=== PATIENT | male | born 1995 | race Caucasian/White ===

== ENCOUNTER 2023-02-08 01:29 | Emergency (ER) | payer MEDICAID, SELFPAY ==
[2023-02-08 01:38] VITALS: BP 146/93; PULSE 115; RESP 16; TEMP 36.6; O2SAT 96; BMI 23.7
--- NOTE | 2023-02-08 01:41 | USR_ITS ---
PROCEDURE INFORMATION: Exam: US Scrotum and US Duplex Artery and Vein, Scrotum, Complete Exam date and time: 02/08/2023 2:07 AM Age: 27 years old Clinical indication: Scrotum pain; Patient HX: RT scrotal pain after being hit in groin by dog. ; Additional info: Right testicular swelling, injury TECHNIQUE: Imaging protocol: Real-time ultrasound of the scrotum. Real-time duplex ultrasound scan of the arterial and venous flow of the scrotum with B-mode, color Doppler flow and spectral waveform analysis. Complete exam. Duplex exam was performed to evaluate for torsion and other vascular conditions. COMPARISON: No relevant prior studies available. FINDINGS: Right testicle: Normal size and echotexture. No mass. No torsion. Normal Duplex waveforms and color doppler. Mild microlithiasis. Left testicle: Normal size and echotexture. No mass. No torsion. Normal Duplex waveforms and color doppler. Mild microlithiasis. Epididymides: Normal. Scrotum: Unremarkable scrotal wall. Bilateral varicoceles larger on left than right. US/US scrotum [id number] IMPRESSION: 1. Negative for testicular injury. 2. Incidental varicoceles.
--- NOTE | 2023-02-08 01:42 | W.ED.MALEGU ---
HPI - Male Genitourinary General: Chief complaint: Urogenital-Male Stated complaint: male genital injury Time Seen by Provider: 02/08/23 01:35 History of Present Illness: 27-year-old male patient comes in today with complaints of pain and swelling to the right testicle. Patient reports 2 days ago he was struck in the groin when a dog jumped up on him. Since then patient has had increased pain and discomfort to the right testicle and has noticed some swelling. Patient appears nontoxic. Patient appears in mild pain at rest. Patient reports going to the emergency room last night in [place] and was recommended to have an ultrasound but they could not do 1 because they did not have the availability. Patient elected to follow-up at that time. Patient comes in tonight due to persistent pain and discomfort. Associated symptoms: Deny nausea or vomiting Review of Systems General: Reports: 10 or more systems reviewed and unremarkable except in HPI and below Const: Denies: fever(s) Card: Denies: chest pain Resp: Denies: dyspnea GI: Denies: nausea, vomiting, diarrhea or constipation : Reports: testicular pain and scrotal swelling; Denies: difficulty urinating Musc: Denies: back pain Skin/Breast: Denies: rash Physical Exam Const: COMMON NORMALS: alert HENMT: COMMON NORMALS: normocephalic HEAD & SCALP: normocephalic Neck/C-Spine: COMMON NORMALS: full ROM Lymph: LYMPHATIC: no lymphadenopathy noted Resp: COMMON NORMALS: normal respiratory effort Cardio: COMMON NORMALS: regular rate and regular rhythm RATE: regular rate RHYTHM: regular rhythm GI: COMMON NORMALS: non-tender : SCROTUM: Yes Scrotal tenderness present and Yes erythematous TESTES: Yes testicular swelling Testicular swelling laterality: right and Yes testicular tenderness Testicular tenderness laterality: right Extremity: COMMON NORMALS: normal to inspection Neuro: SENSORIUM/ORIENTATION: Yes alert Skin: COMMON NORMALS: turgor normal GENERAL SKIN EXAM: turgor normal Course Vital Signs: Vital signs: Vital Signs Temperature 97.9 F 02/08/23 01:38 Pulse Rate 115 H 02/08/23 01:38 Respiratory Rate 16 02/08/23 01:38 Blood Pressure 146/93 02/08/23 01:38 Pulse Oximetry 96 02/08/23 01:38 Oxygen Delivery Me thod Room Air 02/08/23 01:38 MDM - Male Medical Decision Making 27-year-old male patient comes in today for complaints of injury to the testicle approximately 2 days ago. Patient reports coming in tonight due to persistent pain and an increase swelling to the right testicle. On exam we do note some mild redness to the right side of the scrotum without induration, and some right testicular swelling. Remainder of exam is unremarkable. Differential diagnosis includes contusion, testicular torsion, epididymitis, orchitis, hydrocele. Ultrasound scrotum was negative. Outstanding labs for a urinalysis and gonorrhea chlamydia. Patient can follow-up with primary care regarding test results, and for further evaluation and treatment. Case management was requested to help with primary care follow-up. Lab Data Radiology Impressions Scrotum Ultrasound 02/08/23 01:41 IMPRESSION: 1. Negative for testicular injury. 2. Incidental varicoceles. Laboratory Results Urine Color Yellow (Yellow) 02/08/23 02:35 Urine Appearance Clear (CLEAR) 02/08/23 02:35 Urine pH 6 (5-7) 02/08/23 02:35 Ur Specific [place] 1.015 (1.005-1.030) 02/08/23 02:35 Urine Protein Neg (Negative) 02/08/23 02:35 Urine Glucose (UA) Norm (Normal) 02/08/23 02:35 Urine Ketones Negative (Negative) 02/08/23 02:35 Urine Blood Neg (Negative) 02/08/23 02:35 Urine Nitrate Negative (Negative) 02/08/23 02:35 Urine Bilirubin Neg (Negative) 02/08/23 02:35 Urine Urobilinogen Neg mg/dL (Negative) 02/08/23 02:35 Ur Leukocyte Esterase Negative (Negative) 02/08/23 02:35 Discharge Plan Discharge Patient Disposition: Home Clinical Impression: Contusion of scrotum and testes, initial encounter Condition: Stable Prescriptions: No Action ondansetron HCl 4 mg tablet 4 mg PO Q6H PRN (Reason: nausea and vomiting) Qty: 10 0RF sulfamethoxazole-trimethoprim [Bactrim DS] 800-160 mg tablet 1 tab PO BID 10 Days Qty: 20 0RF ibuprofen 600 mg tablet 600 mg PO Q8H PRN (Reason: pain) Qty: 60 0RF Discharge Orders: Discharge ED (Routine); Ordered 02/08/23 Ordered By: Handy Bauer Referrals: Daniel Blanco FNP [Nurse Practitioner] - Discharge Diet: Usual diet Discharge Activity: Increase activity as tolerated Patient Instructions: Scrotal Pain (ED) Activity Restrictions/Additional Instructions: Wear good supportive underwear or a jockstrap. Use acetaminophen and/or ibuprofen for pain. Follow-up with primary care for recheck. Return to ED for new concerns. Coding Level of Care Code ED Senior Licensing Manager for Brian Norman
[2023-02-08 02:44] LABS: Add Urine Microscopic? NO; Charge for UA Resulting for Rev
[2023-02-08 02:51] LABS: Bilirubin Urine Neg (Negative); Blood Urine Neg (Negative); Glucose Urine UA Norm (Normal); Ketones Urine Negative (Negative); Leukocyte Esterase Urine Negative (Negative); Nitrate Urine Negative (Negative); Protein Urine Neg (Negative); Specific Gravity, Urine 1.015 (1.005-1.030); Urine Appearance Clear (CLEAR); Urine Color Yellow (Yellow); Urobilinogen Urine Neg (Negative); pH Urine 6 (5-7)
[2023-02-08 03:00] VITALS: PULSE 113; RESP 16; O2SAT 96
--- NOTE | 2023-02-08 10:36 | DCPLANNER ---
senior mechanical project manager had message to speak with patient about getting established with a primary care physician - correctional case records supervisor called phone number [phone]. senior mechanical project manager unable to speak with patient and unable to leave a voicemail, due to mailbox being full.
== END 2023-02-08 03:01 | disposition home or self-care (01) ==
PROVIDERS: Emergency Provider Nurse Practitioner Family
DX: S30.22XA Contusion of scrotum and testes, initial encounter (principal); I86.1 Scrotal varices; W54.1XXA Struck by dog, initial encounter
CPT/HCPCS: 76870; 81003; 87491; 87591; 99284